=== PATIENT | female | born 2000 | race Caucasian/White ===

== ENCOUNTER 2020-05-30 07:37 | Outpatient (CLI) | payer OTHER | END 2020-05-30 07:48 | disposition home or self-care (01) | LOC: LAB 07:37 | DX: Z20.828 Contact with and (suspected) exposure to other viral communicable diseases (principal) ==

== ENCOUNTER → 2020-07-27 13:23 | Outpatient (CLI) | payer OTHER | END | disposition home or self-care (01) | LOC: LAB 13:23 → EDBD 13:23 | PROVIDERS: ATTEND Obstetrics & Gynecology Gynecology | DX: Z20.828 Contact with and (suspected) exposure to other viral communicable diseases (principal) ==

== ENCOUNTER 2021-01-11 13:09 | Outpatient (CLI) | payer OTHER | END 2021-01-11 13:12 | disposition home or self-care (01) | LOC: MAMO-SONO 13:09 | PROVIDERS: ATTEND Surgery Plastic and Reconstructive Surgery | DX: N64.59 Other signs and symptoms in breast (principal); Z12.31 Encounter for screening mammogram for malignant neoplasm of breast; Z87.898 Personal history of other specified conditions ==